=== PATIENT | male | born 1995 | race American Indian/Alaskan Native ===

== ENCOUNTER 2021-08-07 10:18 | Emergency (ER) | payer SELFPAY ==
[2021-08-07 10:51] LABS: Bilirubin,Urine NEG (Negative); Blood,Urine LG (Negative); Color,Urine Yellow (Yellow); Protein,Urine <15 mg/dL mg/dL (Negative); Urobilinogen,Urine < 2.0 mg/dL (<2.0)
[2021-08-07] MEDS ORDERED: MORPHINE 4 MG/1 ML INJ IV ONE (11:21)
[2021-08-07] MEDS ORDERED: ONDANSETRON 4 MG/2 ML INJ IV ONE (11:21)
[2021-08-07] MEDS ORDERED: ONDANSETRON 4 MG ODT TAB PO ONE (11:26)
[2021-08-07] MEDS ORDERED: oxyCODONE /ACETAMINOPHEN 5-325MG TAB PO ONE (11:26)
--- NOTE | 2021-08-07 11:29 | Emergency Department Report ---
ED General Adult HPI - General Chief complaint: Urogenital-Male Stated complaint: RT SIDE PAIN/BLOOD IN URINE Time Seen by Provider: 08/07/21 11:21 Source: patient Mode of arrival: Ambulatory Limitations: No Limitations - History of Present Illness Initial comments: 26-year-old -[place] male patient presents with complaints of sudden onset of blood in his urine and left flank and abdominal pain starting yesterday. No prior history of kidney stones per patient or other past medical history. NKDA per patient. He rates his current pain as a 3/10 in severity. He also admits to some dysuria and increased frequency of urination. No penile discharge, fever/chills/sweats, or nausea/vomiting/diarrhea. -: Sudden - Related Data Previous Rx's Medication Instructions Recorded Last Taken Type Acetaminophen/Codeine [Tylenol 1 tab PO Q8H PRN #10 tab 08/07/21 Unknown Rx /Codeine # 3 tab] Azithromycin [Zithromax Z-LJ] 0 mg PO DAILY #6 tab 08/07/21 Unknown Rx Tamsulosin [Flomax] 0.4 mg PO QDAY 4 Days #4 cap 08/07/21 Unknown Rx Allergies Allergy/AdvReac Type Severity Reaction Status Date / Time No Known Allergies Allergy Unverified 08/07/21 10:24 ED Review of Systems ROS: Stated complaint: RT SIDE PAIN/BLOOD IN URINE Other details as noted in HPI Constitutional: denies: chills, fever, malaise Respiratory: denies: cough, shortness of breath Cardiovascular: denies: chest pain Gastrointestinal: abdominal pain Genitourinary: urgency, dysuria, frequency, hematuria. denies: discharge, testicular pain, testicular mass Musculoskeletal: as per HPI Skin: denies: change in color ED Past Medical Hx - Past Medical History Previous Medical History?: No - Surgical History Past Surgical History?: No - Medications Home Medications: Home Medications Medication Instructions Recorded Confirmed Last Taken Type Acetaminophen/Codeine [Tylenol 1 tab PO Q8H PRN #10 tab 08/07/21 Unknown Rx /Codeine # 3 tab] Azithromycin [Zithromax Z-LJ] 0 mg PO DAILY #6 tab 08/07/21 Unknown Rx Tamsulosin [Flomax] 0.4 mg PO QDAY 4 Days #4 cap 08/07/21 Unknown Rx ED Physical Exam - General Limitations: No Limitations General appearance: alert, in no apparent distress - Head Head exam: Present: atraumatic, normocephalic - Respiratory Respiratory exam: Present: normal lung sounds bilaterally. Absent: respiratory distress - Cardiovascular Cardiovascular Exam: Present: regular rate, normal rhythm - GI/Abdominal GI/Abdominal exam: Present: soft, normal bowel sounds. Absent: distended, tenderness, guarding, rebound, rigid - Back Exam Back exam: Present: full ROM, CVA tenderness (L). Absent: vertebral tenderness - Neurological Exam Neurological exam: Present: alert, oriented X3, normal gait - Psychiatric Psychiatric exam: Present: normal affect, normal mood - Skin Skin exam: Present: warm, dry, intact, normal color. Absent: rash ED Course Vital Signs 08/07/21 10:24 Temperature 97.9 F Pulse Rate 81 Respiratory 16 Rate Blood Pressure 141/91 [Right] O2 Sat by Pulse 98 Oximetry ED Medical Decision Making - Lab Data Result diagrams: 08/07/21 11:30 08/07/21 11:30 Lab Results 08/07/21 08/07/21 08/07/21 Range/Units 11:30 11:30 Unknown WBC 3.6 L (4.5-11.0) K/mm3 RBC 5.19 H (3.65-5.03) M/mm3 Hgb 14.4 (11.8-15.2) gm/dl Hct 44.5 (35.5-45.6) % MCV 86 (84-94) fl MCH 28 (28-32) pg MCHC 33 (32-34) % RDW 11.9 L (13.2-15.2) % Plt Count 176 (140-440) K/mm3 Lymph % (Auto) 28.7 (13.4-35.0) % [place] % (Auto) 10.7 H (0.0-7.3) % Eos % (Auto) 4.0 (0.0-4.3) % Baso % (Auto) 0.8 (0.0-1.8) % Lymph # (Auto) 1.0 L (1.2-5.4) K/mm3 [place] # (Auto) 0.4 (0.0-0.8) K/mm3 Eos # (Auto) 0.1 (0.0-0.4) K/mm3 Baso # (Auto) 0.0 (0.0-0.1) K/mm3 Seg Neutrophils % 55.8 (40.0-70.0) % Seg Neutrophils # 2.0 (1.8-7.7) K/mm3 Sodium 130 L (137-145) mmol/L Potassium 4.1 (3.6-5.0) mmol/L Chloride 96.4 L (98-107) mmol/L Carbon Dioxide 25 (22-30) mmol/L Anion Gap 13 mmol/L BUN 7 L (9-20) mg/dL Creatinine 0.9 (0.8-1.3) mg/dL Estimated GFR > 60 ml/min BUN/Creatinine Ratio 8 % Glucose 104 H (75-100) mg/dL Calcium 9.2 (8.4-10.2) mg/dL Total Bilirubin 0.50 (0.1-1.2) mg/dL AST 15 (5-40) units/L ALT 17 (7-56) units/L Alkaline Phosphatase 78 (35-129) units/L Total Protein 7.2 (6.3-8.2) g/dL Albumin 4.8 (3.9-5) g/dL Albumin/Globulin Ratio 2.0 % Urine Color Yellow (Yellow) Urine Turbidity Clear (Clear) Urine pH 6.0 (5.0-7.0) Ur Specific [place] 1.008 (1.003-1.030) Urine Protein <15 mg/dl (Negative) mg/dL Urine Glucose (UA) Neg (Negative) mg/dL Urine Ketones Neg (Negative) mg/dL Urine Blood Lg (Negative) Urine Nitrite Neg (Negative) Urine Bilirubin Neg (Negative) Urine Urobilinogen < 2.0 (<2.0) mg/dL Ur Leukocyte Esterase Neg (Negative) Urine WBC (Auto) 1.0 (0.0-6.0) /HPF Urine RBC (Auto) 7.0 (0.0-6.0) /HPF U Epithel Cells (Auto) < 1.0 (0-13.0) /HPF - Radiology Data Radiology results: report reviewed CT ABDOMEN AND PELVIS WITHOUT CONTRAST INDICATION / CLINICAL INFORMATION: R flank pain, heamturia. TECHNIQUE: Axial CT images were obtained through the abdomen and pelvis without IV contrast. All CT scans at this location are performed using CT dose reduction for ALARA by means of automated exposure control. COMPARISON: None available. FINDINGS: LOWER CHEST: Bronchopneumonia left lower lobe. LIVER: No significant abnormality. GALLBLADDER: No significant abnormality. PANCREAS: No significant abnormality. SPLEEN: No significant abnormality. ADRENALS: No significant abnormality. RIGHT KIDNEY / URETER: No significant abnormality. LEFT KIDNEY / URETER: No significant abnormality. STOMACH / SMALL BOWEL: No significant abnormality. COLON: No significant abnormality. APPENDIX: No significant abnormality. PERITONEUM: No free fluid, free air or organized collection. LYMPH NODES: No significant adenopathy. AORTA / ARTERIES/ VEINS: No significant abnormality. URINARY BLADDER: Punctate proximal 1 mm calculus layering dependently within the urinary bladder. There is an additional 1 mm calculus near the left ureterovesicular junction. There is no left-sided obstructive uropathy. REPRODUCTIVE ORGANS: No significant abnormality. ADDITIONAL FINDINGS: None. SKELETAL SYSTEM: No significant abnormality. IMPRESSION: 1. No acute abnormality within the abdomen or pelvis. 2. Punctate 1 mm calculus layering dependently within the urinary bladder, could reflect recently passed ureteral calculus. No evidence of obstructive uropathy. 3. Punctate 1 mm calcification near the left ureterovesicular junction without left-sided obstructive uropathy or other intrarenal or ureteral calculi identified. This could represent a tiny stone within the distal left ureter or pelvic phlebolith. 4. Small focus of left lower lobe bronchopneumonia. - Medical Decision Making 26-year-old -[place] male patient presents with complaints of sudden o nset of blood in his urine and left flank and abdominal pain starting yesterday. No prior history of kidney stones per patient or other past medical history. NKDA per patient. He rates his current pain as a 3/10 in severity. He also admits to some dysuria and increased frequency of urination. No penile discharge, fever/chills/sweats, or nausea/vomiting/diarrhea. UA shows mild RBCs without infection. No elevated white count noted on CBC. Mild hyponatremia noted, patient given 1 L normal saline. Patient admits to drinking a large amount of water-states he did this to flush his system when he saw the blood in his urine. Hyponatremia likely due to this. CT shows 2 possible 1 mm kidney stones, 1 in the left ureter and 1 that has fallen into the bladder without hydronephrosis. CT also shows possible bronchopneumonia. Patient denies cough or shortness of breath or chest pain, however I will cover patient with Z-Lj given CT findings. Recommend patient follows up with primary care within 3 to 5 days. Urology referral also given. Discussed in great detail signs and symptoms that should prompt immediate return to the ED with patient who verbalized understanding. He is otherwise well-appearing, his vitals are within normal limits, he is stable for discharge home Critical care attestation.: If time is entered above; I have spent that time in minutes in the direct care of this critically ill patient, excluding procedure time. ED Disposition Clinical Impression: Kidney stone on left side, Bronchopneumonia Disposition: HOME / SELF CARE / HOMELESS Is pt being admited?: No Condition: Stable Instructions: Chronic Bronchitis (ED), Low-Purine Eating Plan, Kidney Stones, [id number], Community-Acquired Pneumonia, Adult, [id number] Prescriptions: Tamsulosin [Flomax] 0.4 mg PO QDAY 4 Days #4 cap Acetaminophen/Codeine [Tylenol /Codeine # 3 tab] 1 tab PO Q8H PRN #10 tab PRN Reason: Pain , Severe (7-10) Azithromycin [Zithromax Z-LJ] 0 mg PO DAILY #6 tab Referrals: PRIMARY CARE, [Primary Care Provider] - 3-5 Days FRANKIE NEWMAN MD [Staff Physician] - 3-5 Days DESIRE RODRIGUEZ MD [Staff Physician] - 3-5 Days Forms: Work/School Release Form(ED)
[2021-08-07 11:51] LABS: Basophils % (Auto) 0.8 % (0.0-1.8); Eosinophils # (Auto) 0.1 K/mm3 (0.0-0.4); Hematocrit 44.5 % (35.5-45.6); Hemoglobin 14.4 gm/dl (11.8-15.2); Lymphocytes % (Auto) 28.7 % (13.4-35.0); Mean Corpuscular HGB Conc 33 % (32-34); Mean Corpuscular Volume 86 fl (84-94); Monocytes # (Auto) 0.4 K/mm3 (0.0-0.8); Monocytes % (Auto) 10.7 % (0.0-7.3); Platelet Count 176 K/mm3 (140-440); Red Blood Count 5.19 M/mm3 (3.65-5.03); Red Cell Distribution Width 11.9 % (13.2-15.2)
[2021-08-07 12:11] LABS: Alanine Aminotransferase 17 units/L (7-56); Albumin 4.8 g/dL (3.9-5); BUN/Creatinine Ratio 8; Blood Urea Nitrogen 7 mg/dL (9-20); Calcium 9.2 mg/dL (8.4-10.2); Hemolysis Index 8
[2021-08-07] MEDS ORDERED: SODIUM CHLORIDE 0.9% 1000 ML 1,000 ML IV ONE (12:42)
--- NOTE | 2021-08-07 13:04 | Cat Scan Report ---
CT ABDOMEN AND PELVIS WITHOUT CONTRAST INDICATION / CLINICAL INFORMATION: R flank pain, heamturia. TECHNIQUE: Axial CT images were obtained through the abdomen and pelvis without IV contrast. All CT scans at this location are performed using CT dose reduction for ALARA by means of automated exposure control. COMPARISON: None available. FINDINGS: LOWER CHEST: Bronchopneumonia left lower lobe. LIVER: No significant abnormality. GALLBLADDER: No significant abnormality. PANCREAS: No significant abnormality. SPLEEN: No significant abnormality. ADRENALS: No significant abnormality. RIGHT KIDNEY / URETER: No significant abnormality. LEFT KIDNEY / URETER: No significant abnormality. STOMACH / SMALL BOWEL: No significant abnormality. COLON: No significant abnormality. APPENDIX: No significant abnormality. PERITONEUM: No free fluid, free air or organized collection. LYMPH NODES: No significant adenopathy. AORTA / ARTERIES/ VEINS: No significant abnormality. URINARY BLADDER: Punctate proximal 1 mm calculus layering dependently within the urinary bladder. The re is an additional 1 mm calculus near the left ureterovesicular junction. There is no left-sided obs tructive uropathy. REPRODUCTIVE ORGANS: No significant abnormality. ADDITIONAL FINDINGS: None. SKELETAL SYSTEM: No significant abnormality. IMPRESSION: 1. No acute abnormality within the abdomen or pelvis. 2. Punctate 1 mm calculus layering dependently within the urinary bladder, could reflect recently pa ssed ureteral calculus. No evidence of obstructive uropathy. 3. Punctate 1 mm calcification near the left ureterovesicular junction without left-sided obstructiv e uropathy or other intrarenal or ureteral calculi identified. This could represent a tiny stone with in the distal left ureter or pelvic phlebolith. 4. Small focus of left lower lobe bronchopneumonia. Signer Name: Chacorta Escobedo MD Signed: 08/07/2021 12:59 PM Workstation Name: [id number]
[2021-08-07 14:08] VITALS: BP 127/87
== END 2021-08-07 14:12 | disposition home or self-care (01) ==
LOC: ED 10:18
DX: N20.2 Calculus of kidney with calculus of ureter (principal); J18.0 Bronchopneumonia, unspecified organism
CPT/HCPCS: 36415; 74176; 80053; 81001; 85025; 96360; 99284; J7030; J3490; Q0162

== ENCOUNTER 2021-08-11 17:23 | Emergency (ER) | payer SELFPAY ==
[2021-08-11] MEDS ORDERED: KETOROLAC 60 MG/2 ML INJ IM ONE (18:42)
--- NOTE | 2021-08-11 18:47 | Emergency Department Report ---
ED Back Pain/Injury HPI - General Chief Complaint: Abdominal Pain Stated Complaint: LT SIDE PAIN Time Seen by Provider: 08/11/21 18:33 Source: patient Limitations: No Limitations - History of Present Illness Initial Comments: 26-year-old male presents to the hospital complaints of persistent but improving left flank pain since diagnosed with a kidney stone here August 07. On August 07 patient presented here with more severe left flank pain. ED work-up revealed left-sided kidney stones with a CT report below. Patient completed his Flomax and is almost out of his Tylenol with Codeine. He continues to have when he moves and bends over stretching his left flank. Patient did not understand that he had to make an appointment with urology and walks into the clinic today. They schedule an appointment for Sunday. He denies severe pain, nausea, vomiting, hematuria, dysuria, or fever. Patient apparently was also provided azithromycin secondary to incidental findings of bronchopulmonary pneumonia on CT. He denies any respiratory symptoms. He is unvaccinated for Covid CT ABDOMEN AND PELVIS WITHOUT CONTRAST from August 07 visit IMPRESSION: 1. No acute abnormality within the abdomen or pelvis. 2. Punctate 1 mm calculus layering dependently within the urinary bladder, could reflect recently passed ureteral calculus. No evidence of obstructive uropathy. 3. Punctate 1 mm calcification near the left ureterovesicular junction without left-sided obstructive uropathy or other intrarenal or ureteral calculi identified. This could represent a tiny stone within the distal left ureter or pelvic phlebolith. 4. Small focus of left lower lobe bronchopneumonia. - Related Data Previous Rx's Medication Instructions Recorded Last Taken Type RX: Azithromycin [Zithromax Z-JL] 0 mg PO DAILY #6 tab 08/07/21 Unknown Rx Ketorolac [Toradol] 10 mg PO Q6H PRN #20 tab 08/11/21 Unknown Rx RX: Acetaminophen/Codeine [Tylenol 1 tab PO Q8H PRN #10 tab 08/11/21 Unknown Rx /Codeine # 3 tab] RX: Tamsulosin [Flomax] 0.4 mg PO QDAY #5 cap 08/11/21 Unknown Rx Allergies Allergy/AdvReac Type Severity Reaction Status Date / Time No Known Allergies Allergy Verified 08/11/21 18:00 ED Review of Systems ROS: Stated complaint: LT SIDE PAIN Other details as noted in HPI Comment: All other systems reviewed and negative ED Past Medical Hx - Past Medical History Hx Renal Disease: Yes (kidney stones) - Medications Home Medications: Home Medications Medication Instructions Recorded Confirmed Last Taken Type RX: Azithromycin [Zithromax Z-LJ] 0 mg PO DAILY #6 tab 08/07/21 Unknown Rx Ketorolac [Toradol] 10 mg PO Q6H PRN #20 tab 08/11/21 Unknown Rx RX: Acetaminophen/Codeine [Tylenol 1 tab PO Q8H PRN #10 tab 08/11/21 Unknown Rx /Codeine # 3 tab] RX: Tamsulosin [Flomax] 0.4 mg PO QDAY #5 cap 08/11/21 Unknown Rx ED Physical Exam - General Limitations: No Limitations - Other Other exam information: General: No acute distress Head: Atraumatic Eyes: normal appearance ENT: Moist mucous membranes Neck: Normal appearance, no midline tenderness Chest: Clear to auscultation bilaterally CV: Regular rate and rhythm Abdomen: Soft, normal bowel sounds, nontender, nondistended, no rebound or guarding Back: Normal inspection, no CVA tenderness Extremity: Normal inspection, full range of motion Neuro: Alert O x 3, no facial asymmetry, speech clear, no gross motor sensory deficit Psych: Appropriate behavior Skin: No rash ED Course Vital Signs 08/11/21 17:59 Temperature 97.9 F Pulse Rate 73 Respiratory 16 Rate Blood Pressure 131/80 O2 Sat by Pulse 100 Oximetry ED Medical Decision Making - Medical Decision Making 26-year-old male presents to the hospital with improving but somewhat persistent left-sided flank pain worse with movement in certain directions. He denies urinary symptoms, nausea, vomiting, or fever. Vital signs unremarkable. Patient afebrile upon arrival in no acute distress. Previous medical record reviewed and patient had very small kidney stones. 1 in the urinary bladder and the 2nd in the left UVJ. Based on patient's symptoms and kidney stone size it is unlikely that patient is having acute obstruction and will likely pass stone spontaneously. Patient will be treated with NSAIDs and 7 more days of Flomax and encouraged to follow-up with urology as scheduled for August 15 Critical Care Time: No Critical care attestation.: If time is entered above; I have spent that time in minutes in the direct care of this critically ill patient, excluding procedure time. ED Disposition Clinical Impression: Left flank pain, Kidney stone on left side Disposition: HOME / SELF CARE / HOMELESS Is pt being admited?: No Does the pt Need Aspirin: No Condition: Stable Instructions: Flank Pain, Adult, [id number], Renal Colic, [id number] Additional Instructions: Take the medication as prescribed. Follow-up with the urologist on Sunday as scheduled. Return if symptoms worsen as indicated by your discharge instructions. Prescriptions: RX: Tamsulosin [Flomax] 0.4 mg PO QDAY #5 cap Ketorolac [Toradol] 10 mg PO Q6H PRN #20 tab PRN Reason: Pain RX: Acetaminophen/Codeine [Tylenol /Codeine # 3 tab] 1 tab PO Q8H PRN #10 tab PRN Reason: Pain , Severe (7-10) Referrals: urologyMD [Other] - 08/15/21 Time of Disposition: 18:49
[2021-08-11 20:00] VITALS: BP 114/69
== END 2021-08-11 20:01 | disposition home or self-care (01) ==
LOC: ED 17:23
DX: N20.0 Calculus of kidney (principal); Z79.899 Other long term (current) drug therapy
CPT/HCPCS: 96372; 99282; J1885